=== PATIENT | female | born 2005 | race Two or more races ===

== ENCOUNTER 2024-10-21 12:44 | Emergency (ER) | payer MEDICAID, SELFPAY ==
--- NOTE | 2024-10-21 12:56 | XR_ITS ---
Examination: Complete OB ultrasound, less than 14 weeks, transabdominal Date and time of exam: October 21, 2024 1403 hours INDICATIONS: Vaginal bleeding and pelvic cramping beginning 2 days ago Technique: Obstetrical ultrasound images less than 14 weeks performed via transabdominal imaging Findings: Uterus 11.6 x 4.9 x 6.3 cm Intrauterine gestational sac 13 mm corresponds to 6 weeks 1 day gestational age No pole No cardiac activity Right ovary 2.4 x 2.0 cm arterial flow Left ovary 3.0 x 2.9 cm arterial flow IMPRESSION: Empty intrauterine gestational sac corresponding to 6 weeks 1 day gestational age Recommend transvaginal pelvic sonography follow-up
[2024-10-21 13:11] VITALS: BP 131/80; PULSE 74; RESP 18; TEMP 36.4; O2SAT 98; BMI 29.8
[2024-10-21 13:31] LABS: Basophils # (Auto) 0.1 Thou/mm3 (0.0-0.2); Basophils % (Auto) 0 % (0-2.5); Eosinophils # (Auto) 0.1 Thou/mm3 (0.0-0.5); Eosinophils % (Auto) 1 % (0-10); Hematocrit 37.6 % (36.0-46.0); Hemoglobin 12.1 g/dL (12.0-16.0); Immature Granulocytes % (Auto) 0 % (0-0); Immature Granulocytes Auto 0.03 Thou/mm3 (0.00-0.00); Lymphocytes # (Auto) 3.3 Thou/mm3 (1.0-4.8); Lymphocytes % (Auto) 26 % (10-50); Mean Corpuscular HGB Conc 32.2 g/dl (31.0-37.0); Mean Corpuscular Volume 78 fL (80-100); Monocytes # (Auto) 0.8 Thou/mm3 (0.0-0.8); Monocytes % (Auto) 6 % (0-12); Neutrophils # (Auto) 8.5 Thou/mm3 (1.8-7.7); Neutrophils % (Auto) 67 % (37-80); Nucleated Red Blood Cell % 0 /100 WBC (0); Platelet Count 398 Thou/mm3 (140-440); Red Blood Count 4.84 Miln/mm3 (4.00-5.20); White Blood Count 12.7 Thou/mm3 (3.6-11.0)
[2024-10-21 14:03] LABS: Albumin, Serum 4.8 gm/dL (3.5-5.0); Albumin/Globulin Ratio 1.7 (1.2-2.2); Alkaline Phosphatase 106 U/L (46-116); Anion Gap 7 (7-16); Aspartate Amino Transferase 12 U/L (0-34); BUN/Creatinine Ratio 13 Ratio (12-20); Bilirubin,Total 0.4 mg/dL (0.3-1.2); Blood Urea Nitrogen 8 mg/dL (9-23); Calcium 9.3 mg/dL (8.3-10.6); Calcium (Corrected) 9.3 mg/dL (8.5-10.1); Carbon Dioxide 24.3 mMol/L (20.0-31.0); Chloride 102 mMol/L (98-107); Creatinine (Component) 0.6 mg/dL (0.6-1.3); Estimated Creatinine Clearance 139.7 mL/min (>60); Globulin 2.8 gm/dL (2.3-3.5); Glucose 93 mg/dL (74-106); Osmolality,Calculated 264 (275-295); Potassium 3.8 mMol/L (3.4-5.1); Sodium 133 mMol/L (136-145); Total Protein 7.6 gm/dL (5.7-8.2); eGFR > 60 See Note
[2024-10-21 14:31] LABS: Alanine Aminotransferase 11 U/L (10-49); Beta HCG,Quantitative 20213 mIU/mL (<5.0)
--- NOTE | 2024-10-21 16:17 | PD.EDVAGBL ---
ED OB Contraction Preg RMI/HPI General Chief complaint: Vaginal Bleeding Stated complaint: VAGINAL BLEEDING SINCE LAST NIGHT , 6-7 WEEKS IUP Time Seen by Provider: 10/21/24 12:57 Arrival date/time: 10/21/24 12:44 19-year-old female presents emerged department complains of vaginal bleeding since last night patient reports being approximate 6 to 7 weeks patient reports no fever nausea or vomiting no other complaints Limitations: no limitations Related Data Allergies Allergy/AdvReac Type Severity Reaction Status Date / Time No Known Allergies Allergy Verified 10/21/24 12:46 Review of Systems Review of Systems Systems Reviewed: All systems reviewed, normal except as documented Constitutional Constitutional: Reports system reviewed and no additional complaints, except as documented, Denies fever(s) and Denies headache(s) Eyes Eyes: Reports system reviewed and no additional complaints, except as documented and Denies blurry vision ENT Ears, Nose, Mouth, and Throat: Reports system reviewed and no additional complaints, except as documented, Denies headache(s), Denies nasal congestion and Denies nasal discharge Cardiovascular Cardiovascular: Reports system reviewed and no additional complaints, except as documented, Denies chest pain and Denies dyspnea Respiratory Respiratory: Reports system reviewed and no additional complaints, except as documented, Denies chest congestion, Denies cough and Denies dyspnea Gastrointestinal Gastrointestinal: Reports system reviewed and no additional complaints, except as documented and Denies abdominal pain Genitourinary Genitourinary: Reports system reviewed and no additional complaints, except as documented and Reports abnormal vaginal bleeding Integumentary/Breasts Skin/Breast: Reports system reviewed and no additional complaints, except as documented and Denies rash Neurologic Neurologic: Reports system reviewed and no additional complaints, except as documented, Reports as per HPI and Denies headache(s) Past Medical History Social History SMOKING STATUS: Never smoker ED Exam General Limitations: Present no limitations General appearance: Present alert and in no apparent distress Head Head exam: Present atraumatic Eye Eye exam: Present normal appearance, PERRL and EOMI ENT ENT exam: Present normal exam, normal oropharynx and mucous membranes moist Neck Neck exam: Present normal inspection, full ROM and trachea midline Chest Chest inspection: Present normal inspection and symmetric chest wall rise Respiratory Respiratory exam: Present normal lung sounds bilaterally; Absent respiratory distress Cardiovascular Cardiovascular exam: Present regular rate, normal rhythm and normal heart sounds Abdominal Exam Abdominal exam: Present soft and normal bowel sounds; Absent distention, tenderness, guarding, rebound or rigidity Extremities Exam Extremities exam: Present normal inspection and full ROM Back Exam Back exam: Present normal inspection and full ROM Neurological Exam Neurological exam: Present alert, oriented X3 and CN II-XII intact Psychiatric Psychiatric exam: Present normal affect and normal mood Skin Skin exam: Present warm, dry, intact and normal color Course Quality Measures none Orders Category Date Time Status EKG (ED ONLY) *Do not use* NOW Care 10/21/24 18:50 Completed EKG (ED Only) Stat Exams 10/21/24 18:50 Stop Req US OB <= 14 weeks fetus Stat Exams 10/21/24 12:56 Completed ABO/RH Type Stat Lab 10/21/24 13:24 Completed Beta HCG,Quantitative Stat Lab 10/21/24 13:24 Completed CBC Stat Lab 10/21/24 13:24 Completed Comprehensive Metabolic Panel Stat Lab 10/21/24 13:24 Completed Midazolam/Ns 100 mg Ivpb [Versed Pf Inj in Ns Premix] Med 10/21/24 18:51 Discontinued 100 mg in 100 ml IV 1 mg/hr Ondansetron Inj [Zofran Inj] Med 10/21/24 18:50 Discontinued 4 mg IV Q4HR PRN fentaNYL 2,500 MCG/250 ML BAG [Sublimaze Inj 2,500 MCG/ Med 10/21/24 18:50 Discontinued 250 ML BAG] 2,500 mcg in 250 ml IV 25 mcg/hr Vital Signs Vital signs: Vital Signs Temperature 97.6 F 10/21/24 13:11 Pulse Rate 74 10/21/24 13:11 Respiratory Rate 18 10/21/24 13:11 Blood Pressure 131/80 H 10/21/24 13:11 Pulse Oximetry (%) 98 10/21/24 13:11 Oxygen Delivery Method Room Air 10/21/24 13:11 O2 saturation 98% room air within normal limit Vaginal Bleeding MDM Narrative MDM Narrative: 19-year-old female presents emerged department complains of vaginal bleeding since last night patient reports being approximate 6 to 7 weeks patient reports no fever nausea or vomiting no other complaints On exam patient well-appearing patient does not appear ill or toxic in no acute distress Lab work as well as ultrasound obtained ultrasound is not very reassuring at this time patient will have to have repeat ultrasound lab work in the next week I explained to the patient that if she has significant pain or bleeding she must return for further evaluation Patient discharged home in no distress to follow-up with primary [employer] in the next 24 to 48 hours and for any worsening symptoms to return to the ER immediately Patient data External records reviewed:: [facility] previous records Clinical information provided by:: patient Social determinants that could affect healthcare access:: none Patient has the following chronic illnesses:: None How is presenting disease/condition affected by chronic disease/condition?: no chronic disease Evaluation data The following diagnostics were reviewed and interpreted by me:: lab results and radiology exam(s) Lab and/or radiology exams considered but not ordered:: Labs and radiology obtained Interpretation Summary: Reviewed by me Medications / Prescriptions Medications or Prescriptions considered but not ordered:: No meds Medication administrations:: Medication Administration History Discontinued Medications Fentanyl Citrate (Sublimaze Inj 2,500 Mcg/250 Ml Bag) 2,500 mcg in 250 mls @ 2.5 mls/hr IV .Q24H PRN; Protocol PRN Reason: PER PROTOCOL Stop: 10/26/24 18:49 Midazolam HCl (Versed Pf Inj In Ns Premix) 100 mg in 100 mls @ 1 mls/hr IV .Q24H PRN; Protocol PRN Reason: PER PROTOCOL Stop: 10/26/24 18:50 Ondansetron HCl (Ondansetron Inj 2 Mg/Ml Inj 2 Ml) 4 mg IV Q4HR PRN PRN Reason: NAUSEA OR VOMITING Stop: 11/20/24 18:49 No meds Consultations Consultation(s) initiated? (list below): No Diagnosis Vaginal Bleeding Differential Diagnosis: missed and threatened Most likely diagnosis given after review of the tests above:: Threatened Admission Indicated Admission indicated?: not indicated Admission Request Was there a request for admission?: No Disposition Plan Disposition Plan: Discharge Discharge Attestation Discharge Attestation: The patient and all family members were given an opportunity to ask questions and understood the discharge instructions. Discharge instructions specifically effects, indications for sooner follow up or return to the emergency department, and the expected course of current diagnosis. Patient condition: Stable Discharge Plan Plan Patient Disposition: HOME (Self Care) Disposition Comment: Stable Prescriptions/Referrals Referrals: No Primary/Family,Physician [Primary Care Provider] - In 1 week Problem List Clinical Impression: , threatened Patient/Caregiver Discharge Instructions Education Materials: ED Possible Miscarriage ... Additional Instructions: Please return next week for repeat lab work and ultrasound for worsening symptoms return immediately Print Language: Peruvian Stand Alone Forms: Leslie Award Info., Patient Portal Info Letter PA/DROP TESTER Supervising Physician PA/DROP TESTER Supervising Physician: Dr. Carl
== END 2024-10-21 19:11 | disposition home or self-care (01) ==
PROVIDERS: Nurse Practitioner Primary Care; Emergency Provider Emergency Medicine
DX: O20.0 Threatened abortion (principal); Z3A.01 Less than 8 weeks gestation of pregnancy
CPT/HCPCS: 36415; 76801; 80053; 80307; 81001; 83735; 84484; 84702; 84703; 85025; 85610; 85730; 86900; 86901; 87086; 99284

== ENCOUNTER → 2024-10-25 | Outpatient (CLI) | payer MEDICAID, SELFPAY ==
--- NOTE | 2024-10-25 13:05 | XR_ITS ---
Examination: OB Transvaginal ultrasound of the pelvis, complete Technique: Transvaginal sonographic images pelvis performed using chaney scale imaging Exam date and time: October 25, 2024 1350 hours Comparison October 21, 2024 INDICATIONS: Anterior intrauterine gestational sac on OB Y sonogram October 21, 2024, vaginal bleeding beginning one week ago FINDINGS: Uterus 10.5 x 5.9 x 7.3 cm Viable intrauterine gestation CRL 0.3 cm corresponds to 5 week 6 day gestational age Cardiac motion 115 bpm Right ovary 2.5 x 2.0 x 1.2 cm arterial flow Left ovary 5.1 x 2.1 x 2.8 cm arterial flow IMPRESSION: Viable intrauterine gestation 5 weeks 6 days Prominent left ovary, recommend pelvic sonography follow-up.
== END | disposition home or self-care (01) ==
LOC: CDIM 12:50
PROVIDERS: Referring Provider Family Medicine; Visit Provider Family Medicine
DX: O46.90 Antepartum hemorrhage, unspecified, unspecified trimester (principal); Z3A.01 Less than 8 weeks gestation of pregnancy
CPT/HCPCS: 76817